=== PATIENT | female | born 1965 | race Native Hawaiian/Other Pacific Islander ===

== ENCOUNTER 2018-10-29 08:52 | Outpatient (CLI) | payer BC | END 2018-10-29 19:23 | disposition home or self-care (01) | LOC: MAMMO 08:52 | DX: Z12.31 Encounter for screening mammogram for malignant neoplasm of breast (principal) ==

== ENCOUNTER 2019-10-30 08:55 | Outpatient (CLI) | payer BC | END 2019-10-30 19:52 | disposition home or self-care (01) | LOC: MAMMO 08:55 | DX: Z12.31 Encounter for screening mammogram for malignant neoplasm of breast (principal); Z13.820 Encounter for screening for osteoporosis ==

== ENCOUNTER 2020-11-03 09:20 | Outpatient (CLI) | payer BC | END 2020-11-03 20:38 | disposition home or self-care (01) | LOC: MAMMO 09:20 | PROVIDERS: ATTEND Obstetrics & Gynecology | DX: Z12.31 Encounter for screening mammogram for malignant neoplasm of breast (principal) ==

== ENCOUNTER 2021-05-23 09:13 | Outpatient (CLI) | payer BC, OTHER | END 2021-05-23 19:22 | disposition home or self-care (01) | LOC: LAB 09:13 | PROVIDERS: ATTEND Internal Medicine | DX: Z20.822 Contact with and (suspected) exposure to COVID-19 (principal) | CPT/HCPCS: 36415; 86769 ==

== ENCOUNTER 2022-02-05 10:58 | Outpatient (CLI) | payer OTHER | END 2022-02-05 20:49 | disposition home or self-care (01) | LOC: MAMMO 10:58 | PROVIDERS: ATTEND Obstetrics & Gynecology | DX: Z13.820 Encounter for screening for osteoporosis (principal); Z12.31 Encounter for screening mammogram for malignant neoplasm of breast ==

== ENCOUNTER 2022-11-30 07:56 | Outpatient (CLI) | payer OTHER | END 2022-11-30 21:17 | disposition home or self-care (01) | LOC: US 07:56 | PROVIDERS: ATTEND Internal Medicine | DX: R31.9 Hematuria, unspecified (principal) ==